=== PATIENT | female | born 1995 | race Caucasian/White ===

== ENCOUNTER 2023-02-15 19:06 | Emergency (ER) | payer SELFPAY ==
[2023-02-15] VITALS (12 sets, daily range): BP systolic 122–128; BP diastolic 73–76; PULSE 63–85; RESP 15–24; TEMP 36.4; O2SAT 100
--- NOTE | 2023-02-15 19:12 | ECG_ITS ---
Measurements Intervals [place] Rate: 77 P: 48 TN: 175 QRS: 26 QRSD: 90 T: 22 QT: 420 QTc: 476 Interpretive Statements SINUS RHYTHM NO PREVIOUS ECG AVAILABLE FOR COMPARISON Electronically Signed On 02-15-2023 19:25:23 CDT by Mona Ariza M.D.
--- NOTE | 2023-02-15 19:29 | ED.GENADULT ---
HPI - General Adult General Chief complaint: Overdose <Sage Hanley MD - Last Filed: 02/16/23 06:12> Stated complaint: OVERDOSE/SI <Sage Hanley MD - Last Filed: 02/16/23 06:12> Time Seen by Provider: 02/15/23 19:09 <Sage Hanley MD - Last Filed: 02/16/23 06:12> History of Present Illness HPI narrative: this is a 27-year-old female presenting ED after an intentional overdose. The patient had called a suicide hotline he then pain the locations phone given to local authorities. She was found by EMS to be responsive to pain in a car with several pill bottles surrounding her. At this time the patient is arousable but lethargic and is not answering questions. She does localize pain. Patient overdosed on several cough and cold medicines. <Sage Hanley MD - Last Filed: 02/16/23 06:12> Related Data Home medications: Home Medications Medication Instructions Recorded Confirmed No Home Medications 02/16/23 02/16/23 <Sage Hanley MD - Last Filed: 02/16/23 06:12> Allergies/adverse reactions: Allergies Allergy/AdvReac Type Severity Reaction Status Date / Time erythromycin base Allergy Unknown Verified 02/16/23 00:24 <Sage Hanley MD - Last Filed: 02/16/23 06:12> [facility] Social History Social History: Social History Substance use type: unknown and other <Sage Hanley MD - Last Filed: 02/16/23 06:12> Exam Narrative: APPEARANCE: Patient is lying supine in bed with her eyes closed, response to sternal rub, despite not answering questions the patient follows all commands that you give her. Head: atraumatic. EYES: pupils are 3 mm equal and reactive NOSE: Atraumatic NECK: Trachea midline RESPIRATORY: No increased rate of breathing, clear to auscultation CARDIOVASCULAR: RRR, ABDOMINAL: Non-distended MUSCULOSKELETAl: No obvious deformities NEURO: Alert. Moving 4/4 extremities, no clonus, Babinski is downgoing SKIN:: skin is warm and dry, normal color PSYCHIATRIC: lethargic <Sage Hanley MD - Last Filed: 02/16/23 06:12> Course Course Emergency Course: [place] 0700: Signed out to the oncoming physician pending placement. <Sage Hanley MD - Last Filed: 02/16/23 06:12> [place] 0700: Signed out to the oncoming physician pending placement. 1708: Patient accepted at [facility] for psychiatric care by Dr. Cross <Rick Bhatt MD - Last Filed: 02/16/23 17:08> Vital Signs Vital signs: Vital Signs Temperature 97.6 F 02/15/23 19:06 Pulse Rate 79 02/15/23 19:06 Respiratory Rate 15 02/15/23 19:06 Blood Pressure 128/73 02/15/23 19:06 Pulse Oximetry 100 02/15/23 19:06 Oxygen Delivery Room Air 02/15/23 19:06 Temperature 98.7 F 02/16/23 16:32 Pulse Rate 93 02/16/23 16:32 Respiratory Rate 16 02/16/23 16:32 Blood Pressure 125/77 02/16/23 16:32 Pulse Oximetry 100 02/16/23 16:32 Oxygen Delivery Room Air 02/15/23 19:06 <Sage Hanley MD - Last Filed: 02/16/23 06:12> Vital Signs Temperature 97.6 F 02/15/23 19:06 Pulse Rate 79 02/15/23 19:06 Respiratory Rate 15 02/15/23 19:06 Blood Pressure 128/73 02/15/23 19:06 Pulse Oximetry 100 02/15/23 19:06 Oxygen Delivery Room Air 02/15/23 19:06 Temperature 98.7 F 02/16/23 16:32 Pulse Rate 93 02/16/23 16:32 Respiratory Rate 16 02/16/23 16:32 Blood Pressure 125/77 02/16/23 16:32 Pulse Oximetry 100 02/16/23 16:32 Oxygen Delivery Room Air 02/15/23 19:06 <Rick Bhatt MD - Last Filed: 02/16/23 17:08> Medical Decision Making MDM Narrative Medical decision making narrative: -Presentation: 27-year-old female presenting with an intentional overdose on multiple cough and cold medications. Patient is laying there with her eyes closed but follows commands briskly. -DDX includes but is not limited to: Intentional overdose, suicidal ideat
[2023-02-15 19:39] LABS: Basophils Percent Auto 0.4 % (0.2-1.2); Eosinophils Absolute Auto 0.2 K/mm3 (0-0.3); Hematocrit 29.5 % (37.0-47.0); Hemoglobin 7.9 g/dL (12.0-15.0); Immature Granulocyte Absolute 0.04 K/mm3 (0.00-0.031); Immature Granulocyte Percent A 0.4 % (0-0.5); Immature Platelet Fraction Pct 5.4 % (0.9-11.2); Lymphocytes Absolute Auto 2.71 K/mm3 (0.9-3.2); Lymphocytes Percent Auto 29.1 % (18.3-44.2); Mean Corpuscular HGB Conc 26.8 g/dl (32-36); Mean Corpuscular Hemoglobin 16.5 pg (26-34); Mean Corpuscular Volume 61.6 fl (80-100); Monocytes Absolute Auto 0.7 K/mm3 (0.1-0.6); Monocytes Percent Auto 7.3 % (2.6-8.5); Neutrophils Absolute Auto 5.6 K/mm3 (1.3-6.7); Neutrophils Percent Auto 60.8 % (45.5-73.1); Platelet Count Result 392 k/mm3 (150-375); Red Blood Count 4.79 M/mm3 (4.2-5.4); Red Cell Distribution Width 22.2 % (11.5-14.5); White Blood Count 9.3 K/mm3 (4.5-10.0)
[2023-02-15 19:46] LABS: Acetaminophen 33 ug/mL (10-30); Ethanol < 10 mg/dL (<10); Salicylate < 1.0 mg/dL (2-20)
[2023-02-15 19:54] LABS: Alanine Aminotransferase 31 U/L (6-35); Albumin Level 4.2 g/dL (3.5-5.1); Alkaline Phosphatase 69 U/L (38-126); Anion Gap 11 mmol/L (8-16); Aspartate Amino Transferase 36 U/L (14-36); Bilirubin,Total 0.9 mg/dL (0.2-1.3); Blood Urea Nitrogen 8 mg/dL (7-17); Calcium 8.6 mg/dL (8.4-10.2); Carbon Dioxide 19 mmol/L (22-30); Chloride 108 mmol/L (98-107); Estimated CRCL calculation 174 ml/min; Estimated Glomerular Filt Rate > 60; Glucose 95 mg/dL (65-110); Potassium 3.8 mmol/L (3.4-5.0); Sodium 138 mmol/L (137-145)
[2023-02-15 19:57] LABS: Amphetamine Screen Urine Negative (Negative); Barbiturate Screen Urine Negative (Negative); Benzodiazepines Screen Urine Negative (Negative); Cannabinoid Screen Urine Negative (Negative); Cocaine Screen Urine Negative (Negative); Methadone Screen Urine Negative (Negative); Opiate Screen Urine Negative (Negative); Phencyclidine Screen Urine Positive (Negative)
[2023-02-15 19:59] LABS: Hypochromasia 2+ (NORMAL); Large Platelets Present; Ovalocytes 1+ (NORMAL)
[2023-02-15 20:00] LABS: Microcytosis 1+ (NORMAL); Schistocytes None Seen (NORMAL); Tear Drop Cells 1+ (NORMAL)
[2023-02-15 20:03] LABS: Add Urine Microscopic? YES; Appearance Urine Clear (Clear); Bacteria Urine None Seen /hpf; Bilirubin Urine Negative (Negative); Color Urine Yellow (Yellow); Glucose Urine UA Negative (Negative); Ketones Urine Negative (Negative); Leukocyte Esterase Ur Negative LEU/UL (Negative); Need Manual Microscopic Reviewed; Nitrate Urine Negative (Negative); Non Pathogenic Casts 0-2; Protein Urine Trace mg/dL (Negative); Specific Grav Ur 1.043 (1.001-1.035); Squamous Epithelial Cell Urine None seen /hpf (Few); Urobilinogen Urine 0.2 mg/dL (<2.0)
[2023-02-15 20:13] LABS: SARS-CoV-2 RNA PCR Negative
--- NOTE | 2023-02-15 20:22 | PC.NURSE ---
[employer] contacted poison control regarding overdose. [employer] spoke with Mike regarding substances patient is suspected of taking. Per Mike at poison control look for MED PEDS depression, give supportive care, look for agitation, delirium, anxiety and treat with benzodiazepine. Mike recommended obtaining a mag level and correct mag level if less than 2 then correct. Recommened redraw of CMP and Tylenol levels 4 hours from last draw, which is around 2320.
[2023-02-15 20:51] LABS: Magnesium 1.8 mg/dL (1.6-2.3)
--- NOTE | 2023-02-15 21:37 | PC.NURSE ---
Patient resting on stretcher after being moved to room 1 for a private room. Eyes closed, opens eyes to voice and follows direction, equal chest rise and fall noted.
[2023-02-15] MEDS: SODIUM CHLORIDE 0.9% IV 2,000 ML 999 ML IV CONT (22:12)
[2023-02-15 23:50] LABS: Acetaminophen < 10 ug/mL (10-30); Alanine Aminotransferase 30 U/L (6-35); Alkaline Phosphatase 66 U/L (38-126); Anion Gap 7 mmol/L (8-16); Aspartate Amino Transferase 32 U/L (14-36); Bilirubin,Total 0.9 mg/dL (0.2-1.3); Blood Urea Nitrogen 7 mg/dL (7-17); Calcium 8.4 mg/dL (8.4-10.2); Carbon Dioxide 21 mmol/L (22-30); Chloride 110 mmol/L (98-107); Estimated CRCL calculation 174 ml/min; Estimated Glomerular Filt Rate > 60; Glucose 104 mg/dL (65-110); Magnesium 1.7 mg/dL (1.6-2.3); Sodium 138 mmol/L (137-145)
[2023-02-16] VITALS (15 sets, daily range): BP systolic 98–125; BP diastolic 54–77; PULSE 58–93; RESP 10–19; TEMP 37.1; O2SAT 98–100
--- NOTE | 2023-02-16 00:41 | PC.NURSE ---
Poison control called and after reviewing her labs and pt status they are closing her case and clearing her. Case: [id number]
--- NOTE | 2023-02-16 01:43 | PC.NURSE ---
Crisis here to evaluate pt
--- NOTE | 2023-02-16 03:07 | PC.NURSE ---
blow off worker still in room with pt at this time
--- NOTE | 2023-02-16 06:11 | PC.NURSE ---
Bonnie from crisis states that care coordination should be contacted when they arrive today to help pt get an emergency medical card. She states she faxed to a couple of facilities and states that some said for crisis to call later this morning to see about available beds
--- NOTE | 2023-02-16 07:23 | PC.NURSE ---
Patient report received from SHAZIA Moreland. All questions answered and care of patient assumed.
--- NOTE | 2023-02-16 07:25 | PC.NURSE ---
Care coordination called at this time in attempt to obtain a emergency medical card due to pt being self pay and needing placement. Care coordination to follow up and call back.
--- NOTE | 2023-02-16 07:27 | PC.NURSE ---
Meal tray placed.
--- NOTE | 2023-02-16 07:31 | PCCCNOTE ---
[facility] called and message left regarding obtaining emergency medical card for pt. Awaiting call back
[2023-02-16] MEDS: FERROUS SULFATE 324 MG TABLET PO (08:09)
--- NOTE | 2023-02-16 08:42 | PCCCNOTE ---
[facility] has screened pt for medicaid eligibility. They determined pt not eligible d/t income levels.
--- NOTE | 2023-02-16 08:55 | PC.NURSE ---
Crisis updated on patient's ineligibility for Medical Card.
--- NOTE | 2023-02-16 09:00 | PC.NURSE ---
Provided update to [facility]. They state they will continue to look for placement.
--- NOTE | 2023-02-16 10:03 | PCCCNOTE ---
New information available on pt finances; [facility] to reevalute for medical card
--- NOTE | 2023-02-16 10:30 | PC.NURSE ---
Received call from intake staff and [facility]. Updates provided. Staff requesting to speak with patient. Patient hesitant but education provided and patient speaking with intake staff via telephone.
--- NOTE | 2023-02-16 10:38 | PCCCNOTE ---
Application for [employer] made Application # is [id number] and is pending
--- NOTE | 2023-02-16 11:35 | PC.NURSE ---
Per instructions from Crisis patient's complete chart faxed to: [facility] ([phone]) [facility] ([phone]) [facility] ([phone]) [facility] is full and not accepting patients at this time.
--- NOTE | 2023-02-16 13:07 | PC.NURSE ---
Spoke with [facility] and updates provided. [facility] currently speaking with patient on the phone to further assess.
--- NOTE | 2023-02-16 14:18 | PC.NURSE ---
Spoke with intake staff at [facility]. Requesting EKG and signed voluntary paperwork. Faxed as requested to number provided.
--- NOTE | 2023-02-16 15:08 | PC.NURSE ---
Received notification from Ray[facility] at [facility] that patient would be accepted. Requested signed voluntary form. Faxed as requested. [facility] to call back with bed assignment.
--- NOTE | 2023-02-16 15:58 | PC.NURSE ---
Pt accepted to [facility] #[facility] on list
--- NOTE | 2023-02-16 18:14 | PC.NURSE ---
Patient report provided to paramedics at time of transport. Patient remains calm and cooperative. All secured belongings provided to medics for transport to [place] along with chart and transfer paperwork.
== END 2023-02-16 18:16 ==
PROVIDERS: Emergency Medicine; Emergency Provider Emergency Medicine
DX: T50.912A Poisoning by multiple unspecified drugs, medicaments and biological substances, intentional self-harm, initial encounter (principal); D64.9 Anemia, unspecified; Z20.822 Contact with and (suspected) exposure to COVID-19
CPT/HCPCS: 36415; 80053; 80307; 81001; 81025; 83735; 84443; 85025; 85055; 87086; 93005; 96360; 96361; 99285; A9270; J7030; U0003; U0005